=== PATIENT | male | born 1955 | race Caucasian/White ===

== ENCOUNTER 2016-12-28 23:11 | Emergency (ER) | payer BC ==
[~2016-12-28] VITALS: Ht 170.2 cm; Wt 61.4 kg
[~2016-12-28 23:11] MED LIST: ATORVASTATIN CA10 MG PO; CENTRUM SILVER1 EAC3 PO; CHILD ASPIRIN81 M1 PO; GLIMEPIRIDE1 MG PO; MAGNESIUM OXID200 MG PO; METFORMIN HCL500 MG PO; OXYCODONE HCL5 MG PO; QUINAPRIL HCL20 MG PO; TRAMADOL HCL50 MG PO; VITAMIN D5000 UNI1 PO; XARELTO10 MG PO
[2016-12-28 23:15] VITALS: BP 156/97
== END 2016-12-29 01:10 | disposition home or self-care (01) ==
LOC: EME 23:11
PROC: 0HQ1XZZ Repair Face Skin, External Approach (ICD-10-PCS; principal; 2016-12-28)
DX: S01.111A Laceration without foreign body of right eyelid and periocular area, initial encounter (principal); S00.11XA Contusion of right eyelid and periocular area, initial encounter; W01.198A Fall on same level from slipping, tripping and stumbling with subsequent striking against other object, initial encounter; Y93.89 Activity, other specified; G71.0 Muscular dystrophy; I10 Essential (primary) hypertension; E78.5 Hyperlipidemia, unspecified; Z79.82 Long term (current) use of aspirin
CPT/HCPCS: 99281; 99284